=== PATIENT | female | born 1940 | race Caucasian/White ===

== ENCOUNTER 2018-04-12 10:32 | Observation (INO) | payer OTHER, BC ==
[2018-04-12] MEDS ORDERED: ALBUTEROL 2.5 MG/3 ML NEB SOL ONE ×3 (10:42→12:33)
[2018-04-12] MEDS ORDERED: METHYLPREDNISOLONE 125 MG INJ ONE (10:42)
[2018-04-12] MEDS ORDERED: IPRATROPIUM BROM 0.5MG/2.5ML ONE ×2 (10:42→12:05)
--- NOTE | 2018-04-12 11:17 | RAD REPORT ---
EXAM DESCRIPTION: RAD - Chest Single View - 04/12/2018 11:10 am CLINICAL HISTORY: Congestion, shortness of breath, possible allergic reaction COMPARISON: None. TECHNIQUE: AP portable chest image was obtained 1100 hours . FINDINGS: No peripheral mass or consolidation. No significant failure or volume overload. Mild cardi omegaly is present. No vascular engorgement. No measurable pleural effusion and no pneumothorax. No g ross bony abnormality seen. No acute aortic findings suspected. IMPRESSION: Mild cardiomegaly without acute failure or volume overload. No focal lung parenchymal mass or infiltrate. No interstitial edema.
[2018-04-12] MEDS ORDERED: dilTIAZem HCl 50 MG/10 ML VIAL IV ONE (11:51)
[2018-04-12] MEDS ORDERED: FENTANYL CITR 100 MCG/2 ML ONE (12:12)
[2018-04-12 12:15] LABS: Absolute Lymphocytes (CBC) 1.3 K/uL (0.7-4.9); Absolute Monocytes 0.7 K/uL (0.1-1.3); Absolute Neutrophil 4.2 K/uL (1.8-8.0); Basophils % 0.4 % (0-1.3); Eosinophils % 0.5 % (0-4.4); Hematocrit 39.9 % (36.0-45.0); Lymphocytes % 20.5 % (15.3-44.8); MCH 32.6 pg (27.0-35.0); MCV 96.1 fL (80-100); MPV 8.8 fL (7.6-11.3); Monocytes % 10.9 % (3.3-12.3); RBC Red Blood Cell Count 4.15 M/uL (3.86-4.86)
[2018-04-12] MEDS ORDERED: EPINEPHRINE INH 0.5 ML VIAL IH ONE ×4 (12:19→13:53)
[2018-04-12] MEDS ORDERED: RSI MEDICATION KIT IV ONE (12:22)
[2018-04-12] MEDS ORDERED: ONDANSETRON 4 MG/2 ML VIAL IV PRN (12:24)
[2018-04-12] MEDS ORDERED: LEVALBUTEROL 1.25 MG/3 ML NEB NEB PRN (12:24)
[2018-04-12] MEDS ORDERED: IPRATROPIUM BROM 0.5MG/2.5ML NEB PRN (12:24)
[2018-04-12] MEDS ORDERED: ACETAMINOPHEN 500 MG TAB PO PRN (12:24)
[2018-04-12] MEDS ORDERED: METOPROLOL TARTRATE 5 MG/5 ML INJ IV PRN (12:24)
[2018-04-12 12:32] LABS: Potassium 3.1 mmol/L (3.5-5.1)
[2018-04-12 13:17] LABS: Protime INR 1.12
--- NOTE | 2018-04-12 13:42 | EDPHYS ---
Physician Documentation [facility] Name: Angie Gant Age: 77 yrs Sex: Female : 1940 Arrival Date: 04/12/2018 Time: 10:36 Bed 4 Private MD: None, None ED Physician Ramin Wheeler HPI: 04/12 13:26 This 77 yrs old Female presents to ER via Wheelchair with complaints of gs Allergic Reaction/SHOB. 13:26 The patient has shortness of breath at rest. Onset: The symptoms/episode began/occurred gs acutely, just prior to arrival. Duration: The symptoms are continuous. The patient's shortness of breath has no apparent modifying factors. Associated signs and symptoms: Pertinent positives: dizziness. Severity of symptoms: At their worst the symptoms were incapacitating in the emergency department the symptoms are unchanged. The patient has experienced similar episodes in the past, a few times. The patient has not recently seen a physician. Historical: - Allergies: 11:41 PENICILLINS; jl7 11:41 Keflex; jl7 11:41 Levaquin; jl7 - Home Meds: 11:41 Synthroid Oral [Active]; jl7 - PMHx: 11:41 Hypothyroidism; acid reflux; jl7 - Immunization history:: Adult Immunizations unknown. - Social history:: The patient lives at home, Smoking status: Patient/guardian denies using tobacco. - Ebola Screening: : No symptoms or risks identified at this time. ROS: 13:26 All other systems are negative. gs Exam: 13:26 Constitutional: The patient appears alert, awake, in obvious distress, severely gs distressed. 13:31 Head/Face: Normocephalic, atraumatic. Eyes: Pupils equal round and reactive to light, gs extra-ocular motions intact. Lids and lashes normal. Conjunctiva and sclera are non-icteric and not injected. Cornea within normal limits. Periorbital areas with no swelling, redness, or edema. ENT: Nares patent. No nasal discharge, no septal abnormalities noted. Tympanic membranes are normal and external auditory canals are clear. Oropharynx with no redness, swelling, or masses, exudates, or evidence of obstruction, uvula midline. Mucous membranes moist. Neck: Trachea midline, no thyromegaly or masses palpated, and no cervical lymphadenopathy. Supple, full range of motion without nuchal rigidity, or vertebral point tenderness. No Meningismus. Chest/axilla: Normal chest wall appearance and motion. Nontender with no deformity. No lesions are appreciated. 13:31 Abdomen/GI: Soft, non-tender, with normal bowel sounds. No distension or tympany. No guarding or rebound. No evidence of tenderness throughout. Back: No spinal tenderness. No costovertebral tenderness. Full range of motion. Skin: Warm, dry with normal turgor. Normal color with no rashes, no lesions, and no evidence of cellulitis. MS/ Extremity: Pulses equal, no cyanosis. Neurovascular intact. Full, normal range of motion. Neuro: Awake and alert, GCS 15, oriented to person, place, time, and situation. Cranial nerves II-XII grossly intact. Motor strength 5/5 in all extremities. Sensory grossly intact. Cerebellar exam normal. Normal gait. 13:31 Cardiovascular: Rate: tachycardic, Rhythm: irregularly irregular, Pulses: no pulse deficits are appreciated. 13:31 ECG was reviewed by the Attending Physician. 13:31 Respiratory: severe repiratory distress is noted, Respirations: tachypnea, Breath sounds: decreased breath sounds, that are moderate, are heard in the right upper lobe, left upper lobe and right middle lobe. Vital Signs: 10:37 Resp 30 S; Pulse Ox 100% on R/A; aa5 10:40 BP 167 / 89; Pulse 130; Resp 20; Pulse Ox 100% on BiPAP; jl7 11:00 BP 133 / 90; Pulse 117; Resp 20; Pulse Ox 100% on BiPAP; jl7 11:58 BP 141 / 72; Pulse 119; Resp 21; Pulse Ox 100% on BiPAP; dh3 12:00 BP 170 / 94; Pulse 136; Resp 21 S; Pulse Ox 100% on BiPAP; jl7 13:38 BP 154 / 74; Pulse 115; Resp 21; Pulse Ox 100% on BiPAP; jl7 14:30 BP 127 / 52; Pulse 97; Resp 23; Pulse Ox 97% on 2 lpm NC; jl7 15:30 BP 114 / 47; Pulse 98; Resp 24; Pulse Ox 98% on 2 lpm NC; dh3 16:21 BP 120 / 52; Pulse 91; Resp 16; Pulse Ox 100% on 2 lpm NC; dh3 17:49 BP 114 / 56; Pulse 87; Resp 16 S; Pulse Ox 98% on 2 lpm NC; jl7 19:26 BP 125 / 60; Pulse 96; Resp 21; Temp 98.2(O); Pulse Ox 97% on R/A; Pain 0/10; lp1 Procedures: 13:31 Cardioversion: (synchronized) for treatment of A fib, with 150 joules X 1. Post gs procedure rhythm is sinus rhythm, the patient tolerated the procedure well. MDM: 10:46 Patient medically screened. 13:31 Differential diagnosis: CHF exacerbation, Chronic Obstructive Pulmonary Disease gs Myocardial Infarction reactive airway disease, anaphalxis. Data reviewed: vital signs, nurses notes. Response to treatment: the patient's symptoms have worsened after treatment, greater tachycardia, greater shortness of breath, will cardiovert continue albuterol, add racemic epi as some mild stridor. 13:31 Physician consultation: Juwan Burrell MD and will see patient in unit, would like consultation with Dr. haas. ED course: pt condition wax an wane, intermittent stridor responds to racemic epi., rhythm is s tach rate 110-120. sats good abg good. 04/12 10:47 Order name: Basic Metabolic Panel; Complete Time: 13:42 04/12 10:47 Order name: CBC with Diff; Complete Time: 15:37 04/12 10:47 Order name: NT PRO-BNP; Complete Time: 13:42 04/12 10:47 Order name: PT-INR; Complete Time: 13:42 04/12 10:47 Order name: Troponin (emerg Dept Use Only); Complete Time: 13:42 04/12 12:32 Order name: Magnesium; Complete Time: 13:42 EDMS 04/12 12:32 Order name: Basic Metabolic Panel EDMS 04/12 12:32 Order name: Basic Metabolic Panel EDMS 04/12 12:32 Order name: Basic Metabolic Panel EDMS 04/12 12:32 Order name: Basic Metabolic Panel EDMS 04/12 12:32 Order name: CBC with Automated Diff EDMS 04/12 12:32 Order name: CBC with Automated Diff EDMS 04/12 12:32 Order name: CBC with Automated Diff EDMS 04/12 12:32 Order name: CBC with Automated Diff EDMS 04/12 10:47 Order name: BIPAP 04/12 10:47 Order name: XRAY Chest (1 view); Complete Time: 13:42 04/12 10:47 Order name: EKG; Complete Time: 10:48 04/12 12:32 Order name: Echo with Doppler [facility] 04/12 12:32 Order name: Magnesium [facility] 04/12 12:32 Order name: Magnesium [facility] 04/12 13:36 Order name: CBC Smear Scan; Complete Time: 15:37 [facility] 04/12 13:52 Order name: ABG Arterial Blood Gas; Complete Time: 15:37 [facility] 04/12 14:38 Order name: Urine Dipstick--Ancillary (enter results); Complete Time: 15:37 04/12 10:47 Order name: Cardiac monitoring; Complete Time: 10:54 04/12 10:47 Order name: EKG - Nurse/Tech; Complete Time: 10:54 04/12 10:47 Order name: IV Saline Lock; Complete Time: 10:54 04/12 10:47 Order name: Labs collected and sent; Complete Time: 10:54 04/12 10:47 Order name: O2 Per Protocol; Complete Time: 10:54 04/12 10:47 Order name: O2 Sat Monitoring; Complete Time: 10:54 04/12 10:47 Order name: Urine Dipstick-Ancillary (obtain specimen); Complete Time: 15:04 04/12 12:32 Order name: CONS Pharmacy Consult [facility] 04/12 12:32 Order name: CONS Physician Consult [facility] 04/12 12:32 Order name: CONS Physician Consult [facility] 04/12 12:32 Order name: Respiratory Therapy Consult [facility] 04/12 12:32 Order name: Heart Healthy [facility] 04/12 12:47 Order name: EKG Electrocardiogram [facility] EC:31 Rate is 125 beats/min. Rhythm is irregularly irregular. QRS interval is prolonged. QT gs interval is normal. T waves are Flattened. Clinical impression: Atrial Fibrillation. Interpreted by me. Administered Medications: 10:41 Drug: SOLU-Medrol 125 mg Route: IVP; Site: left antecubital; jl7 11:00 Follow up: Response: No adverse reaction jl7 10:55 Drug: Albuterol - atroVENT (3:1) (2.5 mg - 0.5 mg) 3 ml Route: Nebulizer; jl7 11:00 Follow up: Response: No adverse reaction jl7 11:55 Drug: Diltiazem 10 mg Route: IVP; Site: left antecubital; jl7 12:05 Follow up: Response: No change in condition jl7 12:17 Drug: fentaNYL (PF) 50 mcg Route: IVP; Site: left antecubital; jl7 13:30 Follow up: Response: No adverse reaction jl7 13:10 Drug: Albuterol 2.5 mg Route: Inhalation; jl7 13:15 Drug: Racemic EPINPHrine 0.5 ml Route: Inhalation; jl7 13:45 Follow up: Response: No adverse reaction jl7 13:45 Drug: Ativan 0.25 mg Route: IVP; Site: left antecubital; jl7 14:15 Follow up: Response: No adverse reaction; Marked relief of symptoms jl7 Disposition: 13:31 Critical Care:. gs Disposition: 04/12/18 13:41 Hospitalization ordered by Juwan Burrell for Inpatient Admission. Preliminary diagnosis are Acute respiratory failure, Paroxysmal atrial fibrillation. - Bed requested for Telemetry/MedSurg (Inpatient). - Status is Inpatient Admission. lp1 - Condition is Stable. - Problem is new. - Symptoms have improved. UTI on Admission? No Critical care time excluding procedures: 13:31 Critical care time: Bedside Care: 10 minutes, Consultation: 10 minutes, Family gs Intervention: 10 minutes. Total time: 30 minutes Signatures: Dispatcher [employer] EDNC Gianfranco Lemos 2 Kaycee Rain RN RN aa5 Yesenia Harris RN RN lp1 Everett Shipley RN RN jl7 Ramin Wheeler MD MD Corrections: (The following items were deleted from the chart) 13:41 13:41 Hospitalization Ordered by Juwan Burrell MD for Inpatient Admission. Preliminary gs diagnosis is Acute respiratory failure. Bed requested for Intensive Care Unit. Status is Inpatient Admission. Condition is Stable. Problem is new. Symptoms have improved. UTI on Admission? No. gs 15:38 13:41 04/12/2018 13:41 Hospitalization Ordered by Juwan Burrell MD for Inpatient Admission. Preliminary diagnosis is Acute respiratory failure; Paroxysmal atrial fibrillation. Bed requested for Intensive Care Unit. Status is Inpatient Admission. Condition is Stable. Problem is new. Symptoms have improved. UTI on Admission? No. gs 19:25 15:38 04/12/2018 13:41 Hospitalization Ordered by Juwan Burrell MD for Inpatient rg2 Admission. Preliminary diagnosis is Acute respiratory failure; Paroxysmal atrial fibrillation. Bed requested for Telemetry/MedSurg (Inpatient). Status is Inpatient Admission. Condition is Stable. Problem is new. Symptoms have improved. UTI on Admission? No. gs 19:55 19:25 04/12/2018 13:41 Hospitalization Ordered by Juwan Burrell MD for Inpatient lp1 Admission. Preliminary diagnosis is Acute respiratory failure; Paroxysmal atrial fibrillation. Bed requested for Telemetry/MedSurg (Inpatient). Status is Inpatient Admission. Condition is Stable. Problem is new. Symptoms have improved. UTI on Admission? No. rg2
--- NOTE | 2018-04-12 13:42 | ER ---
Nurse's Notes [facility] Name: Angie Gant Age: 77 yrs Sex: Female : 1940 Arrival Date: 04/12/2018 Time: 10:36 Bed 4 Private MD: None, None Diagnosis: Acute respiratory failure;Paroxysmal atrial fibrillation Presentation: 04/12 10:36 Presenting complaint: Patient states: "I am having an allergic reaction". Pt c/o SOB, aa5 hoarse voice noted, pt states "my throat is closing up". 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 10:36 Transition of care: patient was not received from another setting of care. Onset: The aa5 symptoms/episode began/occurred 30 minute(s) ago. Onset of symptoms was April 12, 2018. Risk Assessment: Do you want to hurt yourself or someone else? Patient reports no desire to harm self or others. Care prior to arrival: None. 10:36 Method Of Arrival: Wheelchair aa5 10:36 Acuity: APARNA 2 aa5 19:26 Anaphylaxis evaluation, no signs or symptoms of anaphylaxis were noted. Initial Sepsis lp1 Screen: Does the patient meet any 2 criteria? No. Patient's initial sepsis screen is negative. Does the patient have a suspected source of infection? No. Patient's initial sepsis screen is negative. Historical: - Allergies: 11:41 PENICILLINS; jl7 11:41 Keflex; jl7 11:41 Levaquin; jl7 - Home Meds: 11:41 Synthroid Oral [Active]; jl7 - PMHx: 11:41 Hypothyroidism; acid reflux; jl7 - Immunization history:: Adult Immunizations unknown. - Social history:: The patient lives at home, Smoking status: Patient/guardian denies using tobacco. - Ebola Screening: : No symptoms or risks identified at this time. Screenin:59 Abuse screen: Denies threats or abuse. Denies injuries from another. Nutritional jl7 screening: No deficits noted. Tuberculosis screening: No symptoms or risk factors identified. Fall Risk IV access (20 points). Total Betancur Fall Scale indicates No Risk (0-24 pts). Assessment: 10:50 General: Appears distressed, Behavior is cooperative. Pain: Denies pain. Neuro: Level jl7 of Consciousness is awake, alert, obeys commands, Oriented to person, place, time, situation. Cardiovascular: Heart tones present Patient's skin is warm and dry. Respiratory: Airway is patent Respiratory effort is even, labored, Respiratory pattern is symmetrical, tachypnea Breath sounds with wheezes bilaterally. Derm: Skin is pink, warm \\T\\ dry. 12:00 Reassessment: Pt states "I cannot breathe.". Respiratory: Airway is patent Respiratory jl7 effort is even, labored, with retractions, Respiratory pattern is symmetrical, tachypnea Breath sounds are diminished. 12:30 Reassessment: Patient states symptoms have improved. Respiratory: Airway is patent jl7 Respiratory effort is even, unlabored, Respiratory pattern is symmetrical, tachypnea. 13:05 Reassessment: Pt's family reports she's having a hard time catching her breath again. jl7 Respiratory: Airway is patent Respiratory effort is labored, with retractions, Respiratory pattern is symmetrical, tachypnea Breath sounds are diminished. 13:32 Reassessment: Patient states symptoms have improved. Respiratory: Airway is patent jl7 Respiratory effort is even, unlabored, Respiratory pattern is symmetrical, tachypnea. 14:30 Reassessment: Patient and/or family updated on plan of care and expected duration. Pain jl7 level reassessed. Patient is alert, oriented x 3, equal unlabored respirations, skin warm/dry/pink. Patient states feeling better. Patient states symptoms have improved. 15:30 Reassessment: Patient and/or family updated on plan of care and expected duration. Pain jl7 level reassessed. Patient is alert, oriented x 3, equal unlabored respirations, skin warm/dry/pink. 16:30 Reassessment: Patient appears in no apparent distress at this time. Patient and/or jl7 family updated on plan of care and expected duration. Pain level reassessed. Patient is alert, oriented x 3, equal unlabored respirations, skin warm/dry/pink. 17:45 Reassessment: Pt and family are requesting to be able to go home. ERP notified. jl7 19:27 Reassessment: Patient is alert, oriented x 3, equal unlabored respirations, skin lp1 warm/dry/pink. Patient denies pain at this time. Patient states feeling better. Reassessment: Family at bedside, aware of pending admission. Respiratory: Respiratory effort is even, unlabored, Breath sounds are clear bilaterally. 19:44 Reassessment: Attempted to call report at this time. lp1 Vital Signs: 10:37 Resp 30 S; Pulse Ox 100% on R/A; aa5 10:40 BP 167 / 89; Pulse 130; Resp 20; Pulse Ox 100% on BiPAP; jl7 11:00 BP 133 / 90; Pulse 117; Resp 20; Pulse Ox 100% on BiPAP; jl7 11:58 BP 141 / 72; Pulse 119; Resp 21; Pulse Ox 100% on BiPAP; dh3 12:00 BP 170 / 94; Pulse 136; Resp 21 S; Pulse Ox 100% on BiPAP; jl7 13:38 BP 154 / 74; Pulse 115; Resp 21; Pulse Ox 100% on BiPAP; jl7 14:30 BP 127 / 52; Pulse 97; Resp 23; Pulse Ox 97% on 2 lpm NC; jl7 15:30 BP 114 / 47; Pulse 98; Resp 24; Pulse Ox 98% on 2 lpm NC; dh3 16:21 BP 120 / 52; Pulse 91; Resp 16; Pulse Ox 100% on 2 lpm NC; dh3 17:49 BP 114 / 56; Pulse 87; Resp 16 S; Pulse Ox 98% on 2 lpm NC; jl7 19:26 BP 125 / 60; Pulse 96; Resp 21; Temp 98.2(O); Pulse Ox 97% on R/A; Pain 0/10; lp1 ED Course: 10:36 Patient arrived in ED. mr 10:36 None, None is Private Physician. mr 10:37 Arm band placed on Patient placed in an exam room, on a stretcher. aa5 10:40 Initial lab(s) drawn, by me. Inserted saline lock: 20 gauge in left antecubital area, iw using aseptic technique. Blood collected. 10:46 Ramin Wheeler MD is Attending Physician. gs 10:47 Triage completed. aa5 10:53 Everett Shipley, SERENE is Primary Nurse. jl7 10:59 Patient has correct armband on for positive identification. Bed in low position. Call jl7 light in reach. Side rails up X2. 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 Pulse ox on. NIBP on. Warm blanket given. 11:10 EKG done, by animal husbandry technician. reviewed by Ramin Wheeler MD. at1 11:11 XRAY Chest (1 view) In Process Unspecified. EDMS 11:13 Initial lab(s) drawn, by ED staff, sent to lab. dh3 11:56 Lab(s) recollected, by me, sent to lab. dh3 12:19 Assist provider with cardioversion (unsynchronized) with pads, for treatment of A fib jl7 with 150 joules Set up for procedure. Performed by Ramin Wheeler MD Monitored with cardiac care nurse, pulse ox, Post procedure rhythm is sinus rhythm. Patient tolerated poorly. 12:30 EKG done, reviewed by Ramin Wheeler MD post cardioversion. at1 13:24 Magnesium Sent. jl7 13:41 Juwan Burrell MD is Hospitalizing Provider. gs 15:04 BIPAP Sent. jl7 19:16 Primary Nurse role handed off by Everett Shipley RN jl7 19:25 Yesenia Harris, SERENE is Primary Nurse. lp1 19:27 Patient admitted, IV remains in place. lp1 Administered Medications: 10:41 Drug: SOLU-Medrol 125 mg Route: IVP; Site: left antecubital; jl7 11:00 Follow up: Response: No adverse reaction jl7 10:55 Drug: Albuterol - atroVENT (3:1) (2.5 mg - 0.5 mg) 3 ml Route: Nebulizer; jl7 11:00 Follow up: Response: No adverse reaction jl7 11:55 Drug: Diltiazem 10 mg Route: IVP; Site: left antecubital; jl7 12:05 Follow up: Response: No change in condition jl7 12:17 Drug: fentaNYL (PF) 50 mcg Route: IVP; Site: left antecubital; jl7 13:30 Follow up: Response: No adverse reaction jl7 13:10 Drug: Albuterol 2.5 mg Route: Inhalation; jl7 13:15 Drug: Racemic EPINPHrine 0.5 ml Route: Inhalation; jl7 13:45 Follow up: Response: No adverse reaction jl7 13:45 Drug: Ativan 0.25 mg Route: IVP; Site: left antecubital; jl7 14:15 Follow up: Response: No adverse reaction; Marked relief of symptoms jl7 Outcome: 13:41 Decision to Hospitalize by Provider. gs 19:27 Condition: stable lp1 19:27 Instructed on the need for admit. 19:53 Admitted to Med/surg via wheelchair, room 221, with chart, Report called to SERENE prather lp1 19:55 Patient left the ED. lp1 Signatures: Dispatcher [employer] EDKY Penelope Upton Dulce Rodríguez, RN RN iw Kaycee Rain, RN RN aa5 Yesenia Harris RN RN lp1 Aracelis Hernandez, transmission line engineer EKG Tat1 Everett Shipley RN RN jl7 Kyra Moreau 3 Ramin Wheeler MD MD gs Corrections: (The following items were deleted from the chart) 14:58 10:40 BP 167 / 89; Pulse 130bpm; Resp 20bpm; Pulse Ox 100% BiPAP; jl7 jl7 14:58 11:00 BP 133 / 90; Pulse 117bpm; Resp 20bpm; Pulse Ox 100% BiPAP; jl7 jl7 17:49 17:49 BP 114 / 56; Pulse 87bpm; Resp 16bpm; Spontaneous; Pulse Ox 98% RA; jl7 jl7
[2018-04-12 13:53] LABS: Arterial Blood Carboxyhemoglob 0.8 % (0-1.5); Blood Gas Oxyhemoglobin 97.9 % (94-97); Blood O2 Saturation 99.8 % (92-98.5)
[2018-04-12] MEDS ORDERED: LORazepam 2 MG/ML VIAL ONE (13:57)
[2018-04-12 13:59] LABS: Anisocytosis 2+; Blood Morphology Comment NOTED (NOT SEEN); Platelet Estimate ADEQ; Poikilocytosis 2+; Urine White Blood Cell Casts OK
[2018-04-12] MEDS: ENOXAPARIN 100 MG/ML SYR SQ SCH ×2 (14:00→21:00)
[2018-04-12 14:56] LABS: Urine Blood TRACE (NEG); Urine Glucose NEGATIVE (NEG); Urine Protein NEGATIVE (NEG)
--- NOTE | 2018-04-12 15:46 | EKG ---
Test Date: 2018-04-12 Test Time: 12:24:33 Facility Designer: MARK MEASUREMENT RESULTS: Intervals: Rate: 113 RI: 164 QRSD: 102 QT: 328 QTc: 449 [place]: P: 89 RI: 164 QRS: -64 T: 96 INTERPRETIVE STATEMENTS: Sinus tachycardia with premature supraventricular complexes Left anterior fascicular block Intraventricular conduction delay Non specific ST and T abnormality Abnormal ECG Compared to ECG 04/12/2018 10:57:47 Atrial premature complex(es) now present Atrial fibrillation no longer present Electronically Signed On 04-12-18 15:45:52 CDT by Yossi Green
--- NOTE | 2018-04-12 15:48 | EKG ---
Test Date: 2018-04-12 Test Time: 10:57:47 Receiving And Processing Supervisor: XIOMARA MEASUREMENT RESULTS: Intervals: Rate: 125 NE: QRSD: 106 QT: 320 QTc: 461 [place]: P: NE: QRS: -62 T: 99 INTERPRETIVE STATEMENTS: Atrial fibrillation with rapid ventricular response Left anterior fascicular block Moderate voltage criteria for LVH, may be normal variant Nonspecific ST and T wave abnormality Abnormal ECG No previous ECG available for comparison Electronically Signed On 04-12-18 15:47:23 CDT by Yossi Green
--- NOTE | 2018-04-12 15:58 | CON ---
History Of Present Illness: Ms. Gant is 77 and she came to our hospital with worsening dyspnea. She was found to be in atrial fib. She was cardioverted and is in sinus rhythm at the time of my examin ation. She has had AFib one other time; it was brief. She was not on any AFib medications. Ms. Josselin urbano has very severe lung disease. She has reactive airways disease and she has an abscess in one of he r lungs that has slowly been resolving. She has been on clindamycin therapy for a year and goes to [facility] [place] in [place] about this. She came to our emergency room first time being here. She is in extreme respiratory distress. At this point, I am not sure if she has been intubated or not, but she looks like she is close to it. There is no history of coronary heart disease. No stents or bypa ss surgery. Physical Examination: Ms. Gant appears to be in respiratory distress using all of the musculature of her upper body to help breathe. She is on a BiPAP mask. Can barely speak. Her lungs reveal wheezes throughout and chest x-ray is reported as showing a fairly normal-looking chest. Impression: The patient's atrial fibrillation does not seem to be the reason that she got short of b reath, but it certainly contributes to her severe lung problem. It is making her have atrial fibrill ation. Since she is in sinus rhythm now, we can give Lovenox to prevent cardiac emboli and when her lungs clear up, if we do not see atrial fibrillation, then I do not think we should initiate antiarrh ythmic therapy. 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 LAUREL/ROLANDO Voice ID: [id number] Report ID: [id number]
[2018-04-12] MEDS ORDERED: POTASSIUM CL SA 10 MEQ TAB PO ONE (17:00)
[2018-04-12] MEDS ORDERED: METHYLPREDNISOLONE 40 MG INJ IV SCH (18:00)
[2018-04-12] MEDS ORDERED: SUCCINYLCHOLINE 20 MG/ML (10 ML) IV ONE (18:15)
[2018-04-12] MEDS ORDERED: ETOMIDATE 20 MG/10 ML VIAL IV ONE (18:15)
[2018-04-12] MEDS: ARFORMOTEROL TARTRATE 15 MCG/2 ML VIAL.NEB NEB SCH (21:00)
[2018-04-13] MEDS: METHYLPREDNISOLONE 40 MG INJ IV SCH ×2 (00:03→10:20)
[2018-04-13 06:53] LABS: Absolute Lymphocytes (CBC) 0.4 K/uL (0.7-4.9); Absolute Monocytes 0.3 K/uL (0.1-1.3); Absolute Neutrophil 9.5 K/uL (1.8-8.0); Basophils % 0.3 % (0-1.3); Lymphocytes % 4.3 % (15.3-44.8); MCH 33.2 pg (27.0-35.0); MCV 95.9 fL (80-100); MPV 8.8 fL (7.6-11.3); Monocytes % 3.4 % (3.3-12.3); RBC Red Blood Cell Count 3.65 M/uL (3.86-4.86)
--- NOTE | 2018-04-13 07:00 | P.HP ---
Certification for Inpatient Patient admitted to: Inpatient With expected LOS: >2 Midnights Patient will require the following post-hospital care: None Practitioner: I am a practitioner with admitting privileges, knowledge of patient current condition, hospital course, and medical plan of care. Services: Services provided to patient in accordance with Admission requirements found in Title 42 Section 412.3 of the Code of Federal Regulations Patient History Date of Service: 04/12/18 Reason for admission: Atrial fibrillation with rapid ventricular response History of Present Illness: Patient is a 77-year-old female with end-stage COPD and reactive airway disease who comes into the emergency room with atrial fibrillation with rapid ventricular response. Patient also has a pulmonary abscess for which she is receiving intravenous clindamycin. Patient has been going through therapy for the IV antibiotics for about a year. She is improved clinically, since that time according to the family. Earlier today she became very short of breath. On arrival to the emergency room she was found to be in atrial fibrillation, and she had rapid ventricular response. Patient was cardioverted in the emergency room. After cardioversion her respiratory status has stabilized. She clinically is appearing better although she does have some pain on the right suprascapular region. Overall, will continue with medication for rate control. She has had a similar episode a few years ago. The since that time she has not needed to take any medications. She will need to be monitored closely especially with her history of COPD as putting her on a beta agonist can stimulate her atrial fibrillation. Will discuss with Cardiology and Pulmonary regarding long-term plan of care. She should be stable for discharge in 48-72 hr. Allergies cephalexin [From Keflex] Adverse Reaction (Verified 04/12/18 20:18) Shortness of breath levofloxacin [From Levaquin] Adverse Reaction (Verified 04/12/18 20:18) Shortness of breath Penicillins Adverse Reaction (Verified 04/12/18 20:18) Shortness of breath Home Medications: Beclomethasone Dipropionate [Qvar] 2 puff IH BID 04/12/18 Fluticasone [Flonase 50MCG Nasal [place]*] 1 spray STEPHANIE BID 04/12/18 Levothyroxine [Synthroid*] 1 tab PO DAILY 04/12/18 Liothyronine Sodium [Cytomel] 5 mcg PO DAILY 04/12/18 Lisinopril [Prinivil*] 5 mg PO ONCE PRN 04/12/18 Montelukast [Singulair*] 10 mg PO BEDTIME 04/12/18 - Past Medical/Surgical History Has patient received pneumonia vaccine in the past: Yes Diabetic: No -: hypothyroidism -: acid reflux -: bilateral repair of carpal tunnel -: cholecystectomy -: c. section x 2 - Social History Smoking Status: Never smoker Alcohol use: Yes Place of Residence: Home Review of Systems 10-point ROS is otherwise unremarkable Physical Examination - Vital Signs Temperature: 97.5 F Blood Pressure: 148/69 Pulse: 76 Respirations: 18 Pulse Ox (%): 97 - Physical Exam General: Alert, In no apparent distress, Oriented x2 HEENT: Atraumatic, PERRLA, Mucous membr. moist/pink, EOMI, Sclerae nonicteric Neck: Supple, 2+ carotid pulse no bruit, No LAD, Without JVD or thyroid abnormality Respiratory: Clear to auscultation bilaterally, Normal air movement Cardiovascular: Regular rate/rhythm, Normal S1 S2, No rubs, No murmurs, Irregular heart rate/rhythm Gastrointestinal: Normal bowel sounds, Soft and benign, Non-distended, No tenderness Musculoskeletal: No clubbing, No swelling, No tenderness Integumentary: No rashes Neurological: Normal gait, Normal speech, Normal tone, Sensation intact, Cranial nerves 3-12 intact, Normal affect, Abnormal strength Lymphatics: No axilla or inguinal lymphadenopathy - Studies Laboratory Data (last 24 hrs) 04/12/18 11:50: Magnesium 2.0 04/12/18 11:50: PT 13.2 H, INR 1.12 04/12/18 11:50: WBC 6.2, Hgb 13.5, Hct 39.9, Plt Count 212 04/12/18 11:50: Sodium 140, Potassium 3.1 L, BUN 16, Creatinine 0.70, Glucose 104 Assessment & Plan - Problems (Diagnosis) (1) COPD with acute exacerbation Current Visit: Yes Status: Acute (2) Atrial fibrillation with rapid ventricular response Current Visit: Yes Status: Acute (3) History of lung abscess Current Visit: Yes Status: Acute (4) Diabetes type 2, controlled Current Visit: Yes Status: Acute Qualifiers: Diabetes mellitus usp insulin use: with usp use (5) Malignant hypertension Current Visit: Yes Status: Acute - Plan Plan: 1. Continue with medication for rate control 2. Discuss with Cardiology regarding anti coagulation 3. Continue clindamycin for IV antibiotics for the pulmonary abscess 4. Discuss with Pulmonary regarding long-term beta agonist use 5. GI and DVT prophylaxis Discharge Plan: Home Plan to discharge in: Greater than 2 days - Advance Directives Does patient have a Living Will: Yes Does patient have a Durable POA for Healthcare: Yes - Code Status/Comfort Care Code Status Assessed: Yes Code Status: Full Code Critical Care: No Time Spent Managing PTS Care (In Minutes): 50
[2018-04-13 07:18] LABS: BUN Blood Urea Nitrogen 17 mg/dL (7-18); Bicarbonate 27 mmol/L (21-32); Glucose Level 139 mg/dL (74-106); Magnesium 2.2 mg/dL (1.8-2.4); Sodium Level 138 mmol/L (136-145)
[2018-04-13] MEDS: ARFORMOTEROL TARTRATE 15 MCG/2 ML VIAL.NEB NEB SCH (07:41)
--- NOTE | 2018-04-13 08:09 | P.CNS ---
Date of Consult: 04/13/18 Reason for Consult: shortness of breath Chief Complaint: Atrial fibrillation with rapid ventricular response History of Present Illness: Patient is 77 years of age admitted with rapid AFib patient was cardioverted She is a history of chronic obstructive pulmonary disease and is been followed up at the Pulmonary Clinic at the [facility] in [place] patient was here visiting she has severe reactive airways disease and CAD is and EpiPen with her Treated with IV antibiotics for a pulmonary abscess with clindamycin admission precipitated by shortness of breath patient was cardioverted in the emergency room at the time of my of the patient was doing well denies any shortness of breath Patient is compliant with her bronchodilators Allergies cephalexin [From Keflex] Adverse Reaction (Verified 04/12/18 20:18) Shortness of breath levofloxacin [From Levaquin] Adverse Reaction (Verified 04/12/18 20:18) Shortness of breath Penicillins Adverse Reaction (Verified 04/12/18 20:18) Shortness of breath Home Medications: Beclomethasone Dipropionate [Qvar] 2 puff IH BID 04/12/18 Fluticasone [Flonase 50MCG Nasal [place]*] 1 spray STEPHANIE BID 04/12/18 Levothyroxine [Synthroid*] 1 tab PO DAILY 04/12/18 Liothyronine Sodium [Cytomel] 5 mcg PO DAILY 04/12/18 Lisinopril [Prinivil*] 5 mg PO ONCE PRN 04/12/18 Montelukast [Singulair*] 10 mg PO BEDTIME 04/12/18 - Past Medical/Surgical History Diabetic: No -: hypothyroidism -: acid reflux -: bilateral repair of carpal tunnel -: cholecystectomy -: c. section x 2 - Social History Smoking Status: Never smoker Alcohol use: Yes Place of Residence: Home Review of Systems 10-point ROS is otherwise unremarkable Physical Examination Temp Pulse Resp BP Pulse Ox 97.5 F 76 18 148/69 H 97 04/13/18 07:02 04/13/18 07:02 04/13/18 07:02 04/13/18 07:02 04/13/18 07:02 General: Alert, Oriented x3 HEENT: Atraumatic Neck: Supple Respiratory: Clear to auscultation bilaterally Cardiovascular: No edema, Regular rate/rhythm Gastrointestinal: Soft and benign Musculoskeletal: No clubbing, No swelling Integumentary: No rashes, No breakdown Laboratory Data (last 24 hrs) 04/12/18 11:50: Magnesium 2.0 04/12/18 11:50: PT 13.2 H, INR 1.12 04/12/18 11:50: WBC 6.2, Hgb 13.5, Hct 39.9, Plt Count 212 04/12/18 11:50: Sodium 140, Potassium 3.1 L, BUN 16, Creatinine 0.70, Glucose 104 - Problems (1) Atrial fibrillation with rapid ventricular response Current Visit: Yes Status: Acute Plan: Patient is 77 years of age admitted with AFib status post cardioversion currently doing well history of obstructive airways disease continue with bronchodilators chest x-ray shows some mild cardiomegaly no evidence of an abscess patient has a respiratory alkalosis mild hypokalemia oxygenation satisfactory
[2018-04-13] MEDS: ENOXAPARIN 100 MG/ML SYR SQ SCH (09:00)
[2018-04-13] MEDS ORDERED: LISINOPRIL 5 MG TAB PO PRN (12:47)
--- NOTE | 2018-04-13 12:50 | ECHO ---
HEIGHT: 5 ft 4.5 in WEIGHT: 148 lb 6.4 oz DATE OF STUDY: 04/13/[address]: Juwan Burrell MD 2-DIMENSIONAL: YES M.MODE: YES DOPPLER: YES COLOR FLOW: YES TDS: NO PORTABLE: NO DEFINITY: NO BUBBLE STUDY: NO DIAGNOSIS: ATRIAL FIBRILLATION CARDIAC HISTORY: CATHERIZATION: NO SURGERY: NO PROSTHETIC VALVE: NO PACEMAKER: NO MEASUREMENTS (cm) DIASTOLIC (NORMALS) SYSTOLIC (NORMALS) IVSd 1.1 (0.6-1.2) LA Diam 4.1 (1.9-4.0) LVEF 68% LVIDd 4.3 (3.5-5.7) LVIDs 2.7 (2.0-3.5) %FS 38% LVPWd 1.1 (0.6-1.2) Ao Diam 2.6 (2.0-3.7) 2 DIMENSIONAL ASSESSMENT: RIGHT ATRIUM: NORMAL LEFT ATRIUM: ENLARGED RIGHT VENTRICLE: NORMAL LEFT VENTRICLE: NORMAL TRICUSPID VALVE: NORMAL MITRAL VALVE: NORMAL PULMONIC VALVE: NORMAL AORTIC VALVE: NORMAL PERICARDIAL EFFUSION: NONE AORTIC ROOT: NORMAL LEFT VENTRICULAR WALL MOTION: NORMAL. DOPPLER/COLOR FLOW: TRACE OF TRICUSPID REGURGITATION RIGHT VENTRICULAR SYSTOLIC PRESSURE 44mmHg. COMMENTS: MILD PULMONARY HYPERTENSION RIGHT VENTRICULAR SYSTOLIC PRESSURE 44mmHg. NORMAL LEFT VENTRICULAR SIZE AND FUNCTION. MILD LEFT ATRIAL ENLARGEMENT. TECHNOLOGIST: LY WARD
[2018-04-13] MEDS ORDERED: HEPARIN 500 UNIT/5 ML SYR IV SCH (13:00)
[2018-04-13] MEDS ORDERED: ENOXAPARIN 80 MG/0.8 ML SQ SCH (21:00)
[2018-04-13] MEDS ORDERED: BECLOMETHASONE DIPROPIONATE IH SCH (21:00)
[2018-04-13] MEDS ORDERED: FLUTICASONE 50MCG NASAL SPRAY NAS SCH (21:00)
[2018-04-13] MEDS ORDERED: MONTELUKAST 10 MG TAB PO SCH (21:00)
--- NOTE | 2018-04-14 07:07 | DS ---
Date of Discharge: 04/13/2018 Consultants: Dr. Mi and Peter with Cardiology, Dr. Pineda with Pulmonology. Discharge Diagnoses: 1. Acute respiratory distress. 2. Acute chronic obstructive pulmonary disease exacerbation. 3. Atrial fibrillation with rapid ventricular response. 4. History of lung abscess on IV clindamycin. 5. Diabetes mellitus type 2 with long-term use of insulin with hyperglycemia. 6. Malignant hypertension. Hospital Course: The patient is a 77-year-old female who has been undergoing treatment for lung abscess through IV clindamycin for about a year. Clinically improving. Comes in with AFib with RVR. The patient also has severe end-stage COPD with reactive airway disease. The patient was given digoxin and was then subsequently cardioverted. The patient converted to sinus tachycardia. The patient was then admitted to the hospital. She was started on Lovenox for stroke prophylaxis secondary to atrial fibrillation. She was seen by welder boilermaker, Dr. Green and Dr. Pineda, Pulmonology. The patient did have some mild hypokalemia, which was corrected. Her TSH level was very low, less than 0.005. Her levothyroxine dose was adjusted. She will be on the lower dose. No history of thyroid cancer that she mentioned. The patient otherwise did have some respiratory alkalosis. The patient's condition improved significantly. She was in sinus rhythm. She will be on Eliquis following discharge for prophylaxis secondary to AFib. Her echocardiogram showed EF of 68 %. She did have mild pulmonary hypertension. Right ventricular systolic pressure was 44 and left atrial enlargement. The patient was then cleared for discharge. She will be on some steroids and blood thinners. She was recommended to be placed on Cardizem low dose daily for antiarrhythmia. Followup: Follow up with primary care physician in 2 to 3 days. Follow up with welder boilermaker, Dr. Green in 2 weeks. Follow up with lard tub washer, Dr. Pineda in 2 weeks. Return to ER for worsening condition. Diet: Heart healthy. Activity: As tolerated. Total time spent discharging the patient was 31 minutes. Physical Examination: General: Awake, alert, oriented x3, not in any acute distress. Elderly female. CV: S1, S2. No murmurs. Respiratory: Moving air well bilaterally. No wheezing. Gastrointestinal: Abdomen is soft, nontender, nondistended. Positive bowel sounds. Extremities: No clubbing, cyanosis, edema. Neurologic: Nonfocal. Chest x-ray shows mild cardiomegaly without acute infiltrate or volume overload. No focal lung parenchymal mass or infiltrate. No interstitial edema. The patient will resume her IV clindamycin for treatment of her lung abscess. The patient instructed to follow up with repeat imaging. YAZ Voice ID: [id number] Report ID: [id number]
--- NOTE | 2018-04-14 08:49 | PN ---
Ms. Gant was admitted and seen on 04/12/2018 for respiratory failure on BiPAP. She had atrial fibril lation. She was placed on Lovenox. Today, she is in a normal rhythm. I discussed the case with Dr. Burrell. I think Ms. Gant needs to be on anticoagulant either Xarelto or Eliquis. She probably needs to be on a calcium channel demetrice instead of beta-demetrice because of her severe COPD. I think Card izem CD or verapamil is a good choice for her arrhythmia. She can otherwise go home whenever it is o trino with Dr. Burrell. KRISTAL/ROLANDO Voice ID: [id number] Report ID: [id number]
[2018-04-14] MEDS ORDERED: LIOTHYRONINE SOD 5 MCG TAB PO SCH (09:00)
== END 2018-04-13 14:57 | disposition home or self-care (01) ==
LOC: ER 10:32 → INTOOBSV 14:24 → ERHOLD 14:24 → 2ND 19:27
PROVIDERS: ADMIT Family Medicine; ATTEND Hospitalist
DX: R06.03 Acute respiratory distress (principal); J44.1 Chronic obstructive pulmonary disease with (acute) exacerbation; I48.91 Unspecified atrial fibrillation; E03.9 Hypothyroidism, unspecified; E87.3 Alkalosis; E87.6 Hypokalemia; I10 Essential (primary) hypertension; Z88.0 Allergy status to penicillin; E11.9 Type 2 diabetes mellitus without complications; Z79.4 Long term (current) use of insulin; J85.2 Abscess of lung without pneumonia; Z79.2 Long term (current) use of antibiotics
CPT/HCPCS: 36415; 71045; 80048 ×2; 81003; 82805; 83735 ×2; 83880; 84443; 84484; 85025 ×2; 85610; 92960; 93005 ×2; 93306; 94640 ×2; 94660; 96374; 96375; 99291; G0378 ×2; J0330; J1642; J2920 ×2; J2930; J3010; J7605